=== PATIENT | female | born 2000 | race Caucasian/White ===

== ENCOUNTER 2021-03-29 11:29 | Emergency (ER) | payer OTHER ==
[~2021-03-29 11:29] MED LIST: DELSYM30 MG/5 ML PO; FLONASE 0.05% N16 GM; SUDAFED 60 MG T60 MG PO
[2021-03-29] MEDS ORDERED: MEDROL DOSEPAK 24 MG PO (13:07)
[2021-03-29] MEDS ORDERED: NORFLEX 100 MG100 MG PO (13:07)
[2021-03-29] MEDS ORDERED: NAPROXEN500 MG PO (13:07)
== END 2021-03-29 13:15 | disposition home or self-care (01) ==
LOC: ER1 11:29
DX: M54.40 Lumbago with sciatica, unspecified side (principal); G89.29 Other chronic pain; F17.290 Nicotine dependence, other tobacco product, uncomplicated; X50.9XXA Other and unspecified overexertion or strenuous movements or postures, initial encounter
CPT/HCPCS: 72100; 96372; 99283; J1885

== ENCOUNTER 2021-11-22 01:41 | Emergency (ER) | payer OTHER ==
[~2021-11-22 01:41] MED LIST changes: +MEDROL DOSEPAK 24 MG PO; +NAPROXEN500 MG PO; +NORFLEX 100 MG100 MG PO
[2021-11-22] MEDS ORDERED: CLARITIN10 MG PO (04:05)
[2021-11-22] MEDS ORDERED: PREDNISONE 20 M20 MG PO (04:05)
== END 2021-11-22 04:12 | disposition home or self-care (01) ==
LOC: ER1 01:41
DX: R21 Rash and other nonspecific skin eruption (principal); F17.290 Nicotine dependence, other tobacco product, uncomplicated
CPT/HCPCS: 99282